=== PATIENT | female | born 1980 | race Caucasian/White ===

== ENCOUNTER 2019-10-27 15:34 | Emergency (ER) | payer BC ==
--- NOTE | 2019-10-27 15:47 | UC ---
Ear Complaint HPI - HPI Summary HPI Summary: 39 yo female presents with left facial and ear pain. She tells me that for the last 3 days she has noticed sensitivity, pain, and burning above her left ear, left frontal scalp, and left forehead. Area is tender to touch. She thought maybe she was bitten by a spider and took amoxicillin TID for 3 days with no change in her symptoms. Today she noticed some bumps to her left forehead that are tender. She denies headache, dizziness, vision changes, eye pain or drainage , hearing changes, recent illness, sinus symptoms, sore throat. - History of Current Complaint Stated Complaint: LT EAR PAIN Time Seen by Provider: 10/27/19 15:46 Hx Obtained From: Patient Hx Last Menstrual Period: three weeks ago Onset/Duration: Gradual Onset Severity Initially: Mild Severity Currently: Moderate Pain Intensity: 6 Pain Scale Used: 0-10 Numeric - Allergies/Home Medications Allergies/Adverse Reactions: Allergies Allergy/AdvReac Type Severity Reaction Status Date / Time Sulfa (Sulfonamide Allergy Hives Verified 10/27/19 16:04 Antibiotics) PMH/Surg Hx/FS Hx/Imm Hx - Additional Past Medical History Additional PMH: None - Surgical History Surgical History: None - Family History Known Family History: Positive: None - Social History Occupation: Employed Full-time Lives: With Family Alcohol Use: Occasionally Substance Use Type: None Smoking Status (MU): Never Smoked Tobacco Review of Systems All Other Systems Reviewed And Are Negative: No Constitutional: Positive: Negative Skin: Positive: Rash Eyes: Positive: Negative ENT: Positive: Ear Ache Respiratory: Positive: Negative Cardiovascular: Positive: Negative Gastrointestinal: Positive: Negative Neurological: Positive: Negative Psychological: Positive: Negative Physical Exam - Summary Physical Exam Summary: GENERAL: NAD. WDWN. No pain distress. SKIN: LEFT FOREHEAD with cluster of mildly erythematous slightly raised bumps that are tender to touch. Tenderness to light palpation over left frontal scalp and left temporal scalp. No periorbital lesions. HEENT: Head: AT/NC. Eyes: EOM intact. Conjunctiva clear without inflammation or discharge. Ears: Hearing grossly normal. TMs intact, no bulging, erythema, or edema. Nose: Nasal mucosa pink and moist. NTTP maxillary and frontal sinus. Throat: Posterior oropharynx without exudates, erythema, or tonsillar enlargement. Uvula midline. NECK: Supple. Nontender. No lymphadenopathy. CHEST: CTAB. No accessory muscle use. Breathing comfortably and in no distress. CV: RRR. Pulses intact. Cap refill <2seconds NEURO: Alert. PSYCH: Age appropriate behavior. Triage Information Reviewed: Yes Vital Signs: Vital Signs: Temp Pulse Resp BP Pulse Ox 98.9 F 70 16 121/69 100 10/27/19 16:00 10/27/19 16:00 10/27/19 16:00 10/27/19 16:00 10/27/19 16:00 Vital Signs Reviewed: Yes Ear Complaint Course/Dx - Course Course Of Treatment: Suspect shingles of - likely - V1 trigem. Will rx for valacyclovir and gabapentin for discomfort. Advised to keep areas covered. If new lesions appear nearing the eye to be checked immediately by her eye doctor. - Differential Dx/Diagnosis Provider Diagnosis: Shingles Discharge ED - Sign-Out/Discharge Documenting (check all that apply): Patient Departure All imaging exams completed and their final reports reviewed: No Studies - Discharge Plan Condition: Stable Disposition: HOME Prescriptions: Gabapentin CAP(*) [Neurontin 100 mg CAP(*)] 100 mg PO TID PRN #21 cap PRN Reason: Pain - Moderate Valacyclovir HCl [Valacyclovir] 1,000 mg PO TID #21 tablet Patient Education Materials: Shingles (ED) Referrals: No Primary Care Phys,NOPCP [Primary Care Provider] - Additional Instructions: If you develop a fever, shortness of breath, chest pain, new or worsening symptoms - please call your PCP or go to the ED immediately. Keep the area covered at all times. If you notice any lesions start to form around or near your eye - please see your eye doctor immediately - Billing Disposition and Condition Condition: STABLE Disposition: Home
[2019-10-27 16:03] VITALS: BP 121/69
== END 2019-10-27 16:08 | disposition home or self-care (01) ==
LOC: UCCORT 15:34
DX: B02.9 Zoster without complications (principal); H92.02 Otalgia, left ear; Z88.2 Allergy status to sulfonamides
CPT/HCPCS: 99212; G0463